=== PATIENT | male | born 1965 | race African-American/Black ===

== ENCOUNTER 2016-04-10 15:45 | Emergency (ER) | payer OTHER ==
[~2016-04-10] VITALS: Ht 175.3 cm; Wt 68.1 kg
[~2016-04-10 15:45] MED LIST: AMLODIPINE BESY10 MG PO; ATARAX,VISTARIL25 MG PO; CELEXA10 M1 PO; CELEXA20 MG PO; CITALOPRAM HBR40 MG PO; CLONIDINE HCL0.1 MG PO; CLONIDINE HCL0.2 MG PO; CYCLOBENZAPRINE10 MG PO; DARVOCET-N 1001 EACH PO; FENTANYL1 EAC4 TD; FLEXERIL5 MG PO; HYDROCODON-ACE1 EAC7 PO; INDERIDE 40/1 TABLET PO; LIDEX 0.05% OIN15 GM TP; NAPROSYN250 MG PO; NAPROSYN375 MG PO; NAPROXEN500 MG PO; NOHOMEMEDS; OXYCODONE HCL10 MG PO; PERCOCET 5-3251 EACH PO; PROAIR HFA8.5 GM IH; RIZATRIPTAN10 MG PO; SPIRIVA1 INHALATI IH; WELLBUTRIN XL150 MG PO
[2016-04-10 17:57] LABS: EOSINOPHIL (%) 3.3 % (0-5); EOSINOPHIL COUNT 0.3 K/uL (0-0.3); HEMATOCRIT 43.9 % (38.0-50.0); IMMATURE GRANULOCYTE (%) 0.1 % (0.0-0.7); IMMATURE GRANULOCYTE COUNT 0.1 K/uL; LYMPHOCYTE COUNT 2.7 K/uL (1.0-2.8); MCH 27.8 PG (29.0-34.0); MCHC 33.3 G/DL (30.0-36.0); MCV 83.6 FL (86-99); MEAN PLAT.VOLUME 9.3 uM^3 (9.0-12.4); MONOCYTE (%) 6.9 % (3-12); MONOCYTE COUNT 0.6 K/uL (0-0.8); NEUTROPHIL (%) 60.3 % (45-76); NEUTROPHIL COUNT 5.5 K/uL (1.8-6.4); PLATELET COUNT 306 K/uL (156-360); RBC DIS.WIDTH-CV 14.3 % (11.8-14.6); RBC DIS.WIDTH-SD 43.8 % (39-53); RED BLOOD COUNT 5.25 M/uL (4.00-5.50); WHITE BLOOD COUNT 9.1 K/uL (4.1-10.2)
[2016-04-10 18:11] LABS: CHLORIDE 106 mEq/L (99-109); POTASSIUM 4.3 mEq/L (3.7-5.4); SODIUM 140 mEq/L (136-147)
[2016-04-10 18:13] LABS: GLUCOSE 117 mg/dL (70-99)
[2016-04-10 18:14] LABS: ANION GAP 11 MEQ/L (2-14)
[2016-04-10 18:15] LABS: TOTAL BILIRUBIN 0.3 mg/dL (0.0-1.0)
[2016-04-10 18:17] LABS: ALKALINE PHOSPHATASE 70 IU/L (3-129); GFR ESTIMATE (CALCULATED) > 59 mL/min/
[2016-04-10 18:18] LABS: TROP-I INTERPRETATION NEGATIVE; TROPONIN-I < 0.01 ng/mL (0.0-0.30); UREA NITROGEN (BUN) 12 mg/dL (9-23)
[2016-04-10 18:51] LABS: CARBOXY HGB 5.1 % (0-5); METHEMOGLOBIN 1.1 % (0-1.5); PCO2 59 mm Hg (35-45); PO2 65 mm Hg (80-100)
[2016-04-10 18:52] LABS: COMMENTS - BLOOD GASES C+A+; DEVICE NC; O2 FLOW 2 L/MIN; SITE RR
[2016-04-10] MEDS ORDERED: PREDNISONE20 MG PO (20:36)
[2016-04-10 20:55] VITALS: BP 155/99
== END 2016-04-10 21:15 | disposition home or self-care (01) ==
LOC: EME → EDBD 15:45 → EME 15:45
PROVIDERS: Emergency Medicine
DX: F11.20 Opioid dependence, uncomplicated (principal); J44.1 Chronic obstructive pulmonary disease with (acute) exacerbation; J45.909 Unspecified asthma, uncomplicated; G89.29 Other chronic pain; E78.5 Hyperlipidemia, unspecified; I10 Essential (primary) hypertension; I25.2 Old myocardial infarction; Z86.73 Personal history of transient ischemic attack (TIA), and cerebral infarction without residual deficits; Z86.14 Personal history of Methicillin resistant Staphylococcus aureus infection; F17.200 Nicotine dependence, unspecified, uncomplicated
CPT/HCPCS: 36600; 71010; 80053; 82803; 84484; 85025; 90839; 93005; 94640; 94640 76; 99281; 99284; J7512

== ENCOUNTER 2016-07-21 03:08 | Observation (INO) | payer OTHER ==
[~2016-07-21] VITALS: Ht 175.3 cm; Wt 71.7 kg
[~2016-07-21 03:08] MED LIST changes: +PREDNISONE20 MG PO
[2016-07-21 03:44] LABS: MCH 27.7 PG (29.0-34.0); MCHC 32.3 G/DL (30.0-36.0); MCV 85.7 FL (86-99); MEAN PLAT.VOLUME 9.1 uM^3 (9.0-12.4); PLATELET COUNT 291 K/uL (156-360); RBC DIS.WIDTH-CV 13.9 % (11.8-14.6); RBC DIS.WIDTH-SD 43.3 % (39-53); RED BLOOD COUNT 5.02 M/uL (4.00-5.50); WHITE BLOOD COUNT 14.6 K/uL (4.1-10.2)
[2016-07-21 03:49] LABS: BASE EXCESS -2.1 mEq/L (-3 to +3); BICARBONATE 24.7 mEq/L (22-26); CARBOXY HGB 6.5 % (0-5); COMMENTS - BLOOD GASES A+C+; METHEMOGLOBIN 0.9 % (0-1.5); PCO2 49 mm Hg (35-45); PO2 78 mm Hg (80-100); SITE RR; pH 7.31 (7.35-7.45)
[2016-07-21 03:50] LABS: DEVICE AERO MASK; O2 FLOW 7 L/MIN; TOTAL RESP RATE 17 resp/min
[2016-07-21 03:55] LABS: INTER. NORMALIZED RATIO 1.2; PROTHROMBIN TIME 12.3 (9.2-11.2); PTT 27.1 (25-32)
[2016-07-21 03:58] LABS: CHLORIDE 107 mEq/L (99-109); POTASSIUM 4.2 mEq/L (3.7-5.4); SODIUM 138 mEq/L (136-147)
[2016-07-21 04:00] LABS: GLUCOSE 99 mg/dL (70-99)
[2016-07-21 04:02] LABS: ANION GAP 9 MEQ/L (2-14); TOTAL BILIRUBIN 0.4 mg/dL (0.0-1.0)
[2016-07-21 04:04] LABS: ALKALINE PHOSPHATASE 69 IU/L (3-129); GFR ESTIMATE (CALCULATED) > 59 mL/min/
[2016-07-21 04:05] LABS: UREA NITROGEN (BUN) 12 mg/dL (9-23)
[2016-07-21 04:06] LABS: TROP-I INTERPRETATION NEGATIVE; TROPONIN-I < 0.01 ng/mL (0.0-0.30)
[2016-07-21 04:07] LABS: LIPASE 17 U/L (1.0-51.0)
[2016-07-21 05:28] LABS: BILIRUBIN NEGATIVE; BLOOD NEGATIVE; COLOR YELLOW ((YELLOW)); GLUCOSE (STRIP) NEGATIVE; KETONES 5; LEUKOCYTES NEGATIVE; NITRITE NEGATIVE; PROTEIN (STRIP) 30; SPECIFIC GRAVITY 1.028 (1.000-1.030); UROBILINOGEN 0.2 MG/DL (0.2-1.0)
[2016-07-21 05:30] LABS: ADD MIUA? NO; UCUL ADDED? NO
[2016-07-21 05:36] LABS: SERUM ETHYL ALCOHOL < 10 mg/dL
[2016-07-21 05:38] LABS: ADD MEDTOX COMMENT Y; AMPHETAMINE NEGATIVE (500 ng/mL); BARBITURATES NEGATIVE (200 ng/mL); BENZODIAZEPINES NEGATIVE (150 ng/mL); COCAINE NEGATIVE (150 ng/mL); INTERNAL CONTROLS VALID? YES; METHADONE NEGATIVE (200 ng/mL); METHAMPHETAMINE NEGATIVE (500 ng/mL); OPIATES (MORPHINE) PRESUMPTIVE POSITIVE (100 ng/mL); OXYCODONE PRESUMPTIVE POSITIVE (100 ng/mL); PHENCYCLIDINE NEGATIVE (25 ng/mL); PROPOXYPHENE NEGATIVE (300 ng/mL); THC CANNABINOIDS PRESUMPTIVE POSITIVE (50 ng/mL); TRICYCLIC ANTIDEPRESSANTS NEGATIVE (300 ng/mL)
[2016-07-21] MEDS ORDERED: CLONAZEPAM0.5 MG PO (05:48)
[2016-07-21] MEDS ORDERED: OXYMORPHONE HCL20 MG PO (05:48)
[2016-07-21] MEDS ORDERED: OXYCODONE-APAP1 EACH PO (05:48)
[2016-07-21 06:05] VITALS: BP 150/90
[2016-07-21 07:59] VITALS: BP 142/88
[2016-07-21] MEDS ORDERED: DELTASONE20 M1 PO (10:26)
[2016-07-21] MEDS ORDERED: KENALOG,ARISTOC80 G1 TP (10:30)
[2016-07-21] MEDS ORDERED: BUSPAR10 MG PO (10:30)
[2016-07-21] MEDS ORDERED: GABAPENTIN400 MG PO (10:31)
[2016-07-21 16:58] VITALS: BP 147/88
[2016-07-22 05:17] LABS: EOSINOPHIL (%) 0 % (0-5); HEMATOCRIT 39.9 % (38.0-50.0); IMMATURE GRANULOCYTE (%) 0.5 % (0.0-0.7); IMMATURE GRANULOCYTE COUNT 0.1 K/uL; INSTRUMENT ABS NEUTROPHIL CT 13.6 K/uL; MCH 28.1 PG (29.0-34.0); MCHC 33.1 G/DL (30.0-36.0); MCV 84.9 FL (86-99); MEAN PLAT.VOLUME 9.5 uM^3 (9.0-12.4); MONOCYTE (%) 2.1 % (3-12); MONOCYTE COUNT 0.3 K/uL (0-0.8); NEUTROPHIL (%) 90.5 % (45-76); NEUTROPHIL COUNT 13.6 K/uL (1.8-6.4); PLATELET COUNT 268 K/uL (156-360); RBC DIS.WIDTH-CV 13.6 % (11.8-14.6); RBC DIS.WIDTH-SD 42.4 % (39-53)
[2016-07-22 08:45] VITALS: BP 130/83
[2016-07-22] MEDS ORDERED: CEFTIN500 MG PO (11:46)
[2016-07-22] MEDS ORDERED: DOCUSATE SODIU100 MG PO (11:46)
[2016-07-22] MEDS ORDERED: DUONEB 2.5-0.5 M3 ML AEROSOL (11:46)
[2016-07-22] MEDS ORDERED: PREDNISONE10 MG PO (11:46)
[2016-07-22] MEDS ORDERED: ADVAIR HFA120 INHALA IH (11:46)
[2016-07-22] MEDS ORDERED: DOXYCYCLINE HY100 MG PO (11:46)
== END 2016-07-22 14:00 | disposition home or self-care (01) ==
LOC: EME → EDBD 03:08 → EDOF 04:52 → 5EAST 04:52
PROVIDERS: Emergency Medicine; Physician Assistant Medical
DX: J44.1 Chronic obstructive pulmonary disease with (acute) exacerbation (principal); J96.21 Acute and chronic respiratory failure with hypoxia; J96.22 Acute and chronic respiratory failure with hypercapnia; G89.4 Chronic pain syndrome; F17.200 Nicotine dependence, unspecified, uncomplicated; Z91.19 Patient's noncompliance with other medical treatment and regimen; J45.901 Unspecified asthma with (acute) exacerbation; F11.20 Opioid dependence, uncomplicated; F32.9 Major depressive disorder, single episode, unspecified; F41.9 Anxiety disorder, unspecified; I25.2 Old myocardial infarction; Z86.73 Personal history of transient ischemic attack (TIA), and cerebral infarction without residual deficits; I25.10 Atherosclerotic heart disease of native coronary artery without angina pectoris; Z86.14 Personal history of Methicillin resistant Staphylococcus aureus infection; E78.5 Hyperlipidemia, unspecified; G43.909 Migraine, unspecified, not intractable, without status migrainosus; I10 Essential (primary) hypertension
CPT/HCPCS: 36600; 71010; 80053; 81003; 82803; 83605; 83690; 83880; 84484; 84999; 85025; 85027; 85610; 85730; 87040; 87070; 87205; 93005; 94640; 94640 76; 94799; 99202; 99281; 99284; G0378; G0480; J0456; J0696; J1650; J1956; J2920; J2930; J7050

== ENCOUNTER 2017-08-13 15:52 | Observation (INO) | payer OTHER ==
[~2017-08-13] VITALS: Ht 175.3 cm; Wt 73.9 kg
[~2017-08-13 15:52] MED LIST changes: +ADVAIR HFA120 INHALA IH; +BUSPAR10 MG PO; +CEFTIN500 MG PO; +CLONAZEPAM0.5 MG PO; +DELTASONE20 M1 PO; +DOCUSATE SODIU100 MG PO; +DOXYCYCLINE HY100 MG PO; +DUONEB 2.5-0.5 M3 ML AEROSOL; +GABAPENTIN400 MG PO; +KENALOG,ARISTOC80 G1 TP; +OXYCODONE-APAP1 EACH PO; +OXYMORPHONE HCL20 MG PO; +PREDNISONE10 MG PO
[2017-08-13 16:23] LABS: HEMATOCRIT 45.2 % (38.0-50.0); MCH 27.9 PG (29.0-34.0); MCHC 33.2 G/DL (30.0-36.0); MCV 84.2 FL (86-99); PLATELET COUNT 282 K/uL (156-360); RBC DIS.WIDTH-CV 13.5 % (11.8-14.6); RBC DIS.WIDTH-SD 41.2 % (39-53); RED BLOOD COUNT 5.37 M/uL (4.00-5.50); WHITE BLOOD COUNT 7.9 K/uL (4.1-10.2)
[2017-08-13 16:31] LABS: CHLORIDE 102 mEq/L (99-109); POTASSIUM 3.6 mEq/L (3.7-5.4); SODIUM 139 mEq/L (136-147)
[2017-08-13 16:33] LABS: GLUCOSE 82 mg/dL (70-99)
[2017-08-13 16:36] LABS: CREATININE 0.9 mg/dL (0.6-1.3); GFR ESTIMATE (CALCULATED) > 59 mL/min/ (58.99-99999)
[2017-08-13 16:37] LABS: UREA NITROGEN (BUN) 11 mg/dL (9-23)
[2017-08-13] MEDS ORDERED: ENDOCET 5-3251 EACH PO (20:23)
[2017-08-13] MEDS ORDERED: AMITRIPTYLINE H50 MG PO (20:23)
[2017-08-13] MEDS ORDERED: ANORO ELLIPTA1 EACH IH (20:24)
[2017-08-13] MEDS ORDERED: DICLOFENAC SODI75 MG PO (20:24)
[2017-08-13] MEDS ORDERED: VENTOLIN HFA18 GM IH (20:25)
[2017-08-13 22:33] LABS: HDL CHOLESTEROL 31 MG/DL (Desirable>=40); LDL CHOLESTEROL 75 mg/dL (Desirable<100); NON-HDL CHOLESTEROL 99 mg/dL (Desirable<160); TOTAL CHOLESTEROL 130 mg/dL (Desirable<200); TRIGLYCERIDES 122 MG/DL (Normal: <150)
[2017-08-13 23:52] VITALS: BP 146/89
[2017-08-14 05:30] VITALS: BP 142/99
[2017-08-14 08:37] VITALS: BP 157/93
[2017-08-14 13:08] LABS: HEMOGLOBIN A1c (GLYCOHEMOGLOB) 6.1 % (Below 5.7)
[2017-08-14] MEDS ORDERED: ATORVASTATIN CA40 MG PO (13:32)
[2017-08-14] MEDS ORDERED: CLOPIDOGREL75 MG PO (13:33)
[2017-08-14] MEDS ORDERED: LISINOPRIL5 MG PO (13:33)
== END 2017-08-14 14:56 | disposition home or self-care (01) ==
LOC: EME 15:52 → EDOF 21:13 → ENRESERV 21:33 → 4SOUTH 23:39
PROVIDERS: Hospitalist
DX: G45.9 Transient cerebral ischemic attack, unspecified (principal); I10 Essential (primary) hypertension; J44.9 Chronic obstructive pulmonary disease, unspecified; I25.10 Atherosclerotic heart disease of native coronary artery without angina pectoris; Z86.73 Personal history of transient ischemic attack (TIA), and cerebral infarction without residual deficits; G89.29 Other chronic pain; M54.9 Dorsalgia, unspecified; M54.12 Radiculopathy, cervical region; Z98.1 Arthrodesis status; Z91.14 Patient's other noncompliance with medication regimen; F17.200 Nicotine dependence, unspecified, uncomplicated; Z86.14 Personal history of Methicillin resistant Staphylococcus aureus infection; Z95.5 Presence of coronary angioplasty implant and graft; F12.90 Cannabis use, unspecified, uncomplicated; Z82.49 Family history of ischemic heart disease and other diseases of the circulatory system; F41.9 Anxiety disorder, unspecified; F32.9 Major depressive disorder, single episode, unspecified; Z79.02 Long term (current) use of antithrombotics/antiplatelets; Z88.6 Allergy status to analgesic agent
CPT/HCPCS: 70450; 72125; 80048; 80061; 81003; 83036; 85027; 87641; 93005; 93306; 93880; 94640; 99202; 99281; 99285; G0378; J1644